=== PATIENT | female | born 1985 | race Caucasian/White ===

== ENCOUNTER 2016-08-15 10:49 | Emergency (ER) | payer SELFPAY ==
[~2016-08-15] VITALS: Wt 64.0 kg
[2016-08-15] MEDS ORDERED: FLUT9.9S NASAL (11:46)
[2016-08-15] MEDS ORDERED: LIDO20SO19 MM (11:47)
[2016-08-15] MEDS ORDERED: BEN25 PO (11:47)
--- NOTE | 2016-08-15 11:53 | ERD ---
ER Documentation Chief Complaint Date/Time DATE: 08/15/16 TIME: 11:[address] HPI This patient is a 31-year-old female with no significant medical history presenting to the emergency department for sore throat ongoing for the past 3 days. The patient states her symptoms are intermittent. Additionally the patient has had nasal congestion and chills. The patient denies fevers, urinary symptoms, cough, or other symptoms at this time. The patient is taken no medications for relief of her symptoms. ROS All systems reviewed and are negative except as per history of present illness. Medications Home Meds Active Scripts Diphenhydramine Hcl* (Benadryl*) 25 Mg Cap, 25 MG PO QHS for NASAL CONGESTION, # 30 CAP Prov:ELMER DUMONT PA-C 08/15/16 Lidocaine (Lidocaine Viscous) 100 Ml Soln, 5 ML MM TID for PAIN, #1 BOTTLE Prov:ELMER DUMONT PA-C 08/15/16 Fluticasone Propionate (Flonase Allergy Relief) 9.9 Ml [place].susp, 1 SPRAY NASAL DAILY, #1 BOTTLE TO EACH NOSTRIL Prov:ELMER DUMONT PA-C 08/15/16 FmHx Noncontributory for chief complaint Physical Exam Vitals Vital Signs Date Time Temp Pulse Resp B/P Pulse Ox O2 Delivery O2 Flow Rate FiO2 08/15/16 10:52 98.4 92 18 139/66 99 Physical Exam Const: The patient is resting comfortably in no acute distress. Head: Atraumatic Eyes: Normal Conjunctiva ENT: Normal External Ears, Nose and Mouth. There is tonsillar erythema but no uvular shift. There is no exudate. Airway is clear. Neck: Full range of motion..~ No meningismus. Resp: Clear to auscultation bilaterally Cardio: Regular rate and rhythm, no murmurs Abd: Soft, non tender, non distended. Normal bowel sounds Skin: No petechiae or rashes Back: No midline or flank tenderness Ext: No cyanosis, or edema Neur: Awake and alert Psych: Normal Mood and Affect Procedures/MDM 31-year-old female presents secondary to complaints of odynophagia. On physical examination the patient's vitals are within normal limits. The patient is afebrile. Examination of the throat shows tonsillar erythema but no hypertrophy, exudate, or uvular shift. Clinical examination is concerning for postnasal drip and upper respiratory infection. I have low suspicion for peritonsillar abscess, retropharyngeal abscess, mastoiditis, septicemia, or other emergent conditions. The patient stable for outpatient management. All questions and concerns were addressed and the patient agrees with the discharge plan and diagnosis. The patient was given strict ER return precautions. The patient is to follow-up with her primary care physician. Departure Diagnosis: Primary Impression: Sore throat Additional Impressions: Upper respiratory infection URI type: unspecified URI Qualified Code: J06.9 - Upper respiratory tract infection, unspecified type Post-nasal drip Nasal congestion Condition: Fair Patient Instructions: When You Have a Sore Throat, Self-Care for Sore Throats, Preventing Common Respiratory Infections Referrals: [facility] YOU HAVE RECEIVED A MEDICAL SCREENING EXAM AND THE RESULTS INDICATE THAT YOU DO NOT HAVE A CONDITION THAT REQUIRES URGENT TREATMENT IN THE EMERGENCY DEPARTMENT. FURTHER EVALUATION AND TREATMENT OF YOUR CONDITION CAN WAIT UNTIL YOU ARE SEEN IN YOUR DOCTORS OFFICE WITHIN THE NEXT 1-2 DAYS. IT IS YOUR RESPONSIBILITY TO MAKE AN APPOINTMENT FOR FOLOW-UP CARE. IF YOU HAVE A PRIMARY DOCTOR --you should call your primary doctor and schedule an appointment IF YOU DO NOT HAVE A PRIMARY DOCTOR YOU CAN CALL OUR PHYSICIAN REFERRAL HOTLINE AT IF YOU CAN NOT AFFORD TO SEE A PHYSICIAN YOU CAN CHOSE FROM THE FOLLOWING [facility] [id number] [facility]. [facility] [address] [facility] [facility] [address] [facility] [facility] [address] [facility]. [facility] [id number] [facility]. [facility] [address] Additional Instructions: Follow-up with your primary care physician within 1 week. Return to the emergency department immediately should you have any new or worsening symptoms, uncontrolled fevers, or other unexplained symptoms. Take all medications as directed. ELMER DUMONT PA-C Aug 15, 2016 11:52
== END 2016-08-15 12:00 | disposition home or self-care (01) ==
LOC: FTE 10:49
DX: J02.9 Acute pharyngitis, unspecified (principal); J06.9 Acute upper respiratory infection, unspecified; R09.82 Postnasal drip; R09.81 Nasal congestion
CPT/HCPCS: 99283